=== PATIENT | male | born 1970 | race Caucasian/White ===

== ENCOUNTER 2020-02-16 21:27 | Observation (INO) | payer OTHER ==
[2020-02-16] MEDS ORDERED: Sodium Chloride 0.9% 1,000 ML IV ONE (22:07)
[2020-02-16] MEDS ORDERED: Ondansetron 4 MG/2 ML SDV IVPUSH ONE (22:07)
--- NOTE | 2020-02-16 22:15 | EDM.PDOC ---
<Rachael Mera Gertrude - Last Filed: 02/16/20 22:10> ED HPI GENERAL MEDICAL PROBLEM - General Stated Complaint: ABDOMINAL PAIN Time Seen by Provider: 02/16/20 21:33 Source of Information: Reports: Patient History Limitations: Reports: No Limitations - History of Present Illness INITIAL COMMENTS - FREE TEXT/NARRATIVE: Presents reporting right upper quadrant pain. Patient states that this past 02/10/19 he noticed some right upper quadrant pain, feeling poorly. He stayed off work for 2 days but returned to work on Saturday and Saturday and was feeling well. Then today his pain returned and was worse. Is accompanied by nausea he did vomit once. He has been drinking oral fluids. He thinks the pain is worse after eating. He had a bowel movement is brown and formed yesterday. He has also been feverish with a temperature of 102 at home. He is otherwise healthy without chronic medical problems. He has recently voluntarily lost 50 pounds. Right Upper Abdomen Pain Score (Numeric/FACES): 8 - Related Data Allergies Allergy/AdvReac Type Severity Reaction Status Date / Time No Known Allergies Allergy Verified 02/16/20 22:09 Home Meds: Home Meds . [No Known Home Meds] 02/16/20 [History] ED ROS GENERAL - Review of Systems Review Of Systems: Comprehensive ROS is negative, except as noted in HPI. ED EXAM, GI/ABD - Physical Exam Exam: See Below Exam Limited By: No Limitations General Appearance: Alert, No Apparent Distress Ears: Normal External Exam Nose: Normal Inspection Throat/Mouth: Normal Inspection Head: Atraumatic, Normocephalic Neck: Normal Inspection Respiratory/Chest: No Respiratory Distress, Lungs Clear, Normal Breath Sounds Cardiovascular: Normal Peripheral Pulses, Regular Rate, Rhythm GI/Abdominal Exam: Normal Bowel Sounds, Soft, No Distention, Other (Exquisitly tender right upper quadrant) Extremities: Normal Inspection, Normal Range of Motion Neurological: Alert, Oriented, Normal Cognition Psychiatric: Normal Affect, Normal Mood Skin Exam: Warm, Dry, Intact, Normal Color Lymphatic: No Adenopathy Departure - Departure Disposition: Admitted As Inpatient 67 Clinical Impression: Cholecystitis - Discharge Information Referrals: Keith Martino MD [Primary Care Provider] - <Donaldo Poole - Last Filed: 02/17/20 00:43> Course - Vital Signs Last Recorded V/S: Last Vital Signs Temp 98.4 F 02/16/20 22:09 Pulse 70 02/17/20 00:02 Resp 15 02/17/20 00:02 BP 121/73 02/17/20 00:02 Pulse Ox 96 02/17/20 00:02 - Orders/Labs/Meds Orders: Active Orders 24 hr Category Date Time Status Piperacillin/Tazobactam [Piperacil-Tazobact] 3.375 gm Med 02/17/20 00:31 Active Sodium Chloride 0.9% [Normal Saline] 50 ml IV ONETIME Medication Orders Piperacillin Sod/Tazobactam (Sod 3.375 gm/ Sodium Chloride) 50 mls @ 100 mls/hr IV ONETIME ONE Stop: 02/17/20 01:00 Labs: Laboratory Tests 02/16/20 02/16/20 02/16/20 Range/Units 22:30 22:30 23:55 WBC 16.14 H (4.0-11.0) K/uL RBC 5.04 (4.50-5.90) M/uL Hgb 13.9 (13.0-17.0) g/dL Hct 43.3 (38.0-50.0) % MCV 85.9 (80.0-98.0) fL MCH 27.6 (27.0-32.0) pg MCHC 32.1 (31.0-37.0) g/dL RDW Std Deviation 44.6 (28.0-62.0) fl RDW Coeff of Tao 14 (11.0-15.0) % Plt Count 270 (150-400) K/uL MPV 11.70 (7.40-12.00) fL Neut % (Auto) 82.4 H (48.0-80.0) % Lymph % (Auto) 9.1 L (16.0-40.0) % [place] % (Auto) 7.4 (0.0-15.0) % Eos % (Auto) 1.0 (0.0-7.0) % Baso % (Auto) 0.1 (0.0-1.5) % Neut # (Auto) 13.3 H (1.4-5.7) K/uL Lymph # (Auto) 1.5 (0.6-2.4) K/uL [place] # (Auto) 1.2 H (0.0-0.8) K/uL Eos # (Auto) 0.2 (0.0-0.7) K/uL Baso # (Auto) 0.0 (0.0-0.1) K/uL Nucleated RBC % 0.0 /100WBC Nucleated RBCs # 0 K/uL Sodium 138 (136-148) mmol/L Potassium 4.0 (3.5-5.1) mmol/L Chloride 104 (98-107) mmol/L Carbon Dioxide 23.4 (21.0-32.0) mmol/L BUN 19 H (7.0-18.0) mg/dL Creatinine 1.0 (0.8-1.3) mg/dL Est Cr Clr Drug Dosing 99.16 mL/min Estimated GFR (MDRD) > 60.0 ml/min Glucose 135 H (74-106) mg/dL Calcium 8.9 (8.5-10.1) mg/dL Total Bilirubin 0.2 (0.2-1.0) mg/dL AST 14 L (15-37) IU/L ALT 28 (14-63) IU/L Alkaline Phosphatase 85 (46-116) U/L Total Protein 7.5 (6.4-8.2) g/dL Albumin 3.7 (3.4-5.0) g/dL Globulin 3.8 (2.6-4.0) g/dL Albumin/Globulin Ratio 1.0 (0.9-1.6) Amylase 41 (25-115) U/L Lipase 80 (73-393) U/L Urine Color YELLOW Urine Appearance CLEAR Urine pH 5.5 (5.0-8.0) Ur Specific [place] 1.010 (1.001-1.035) Urine Protein NEGATIVE (NEGATIVE) mg/dL Urine Glucose (UA) NEGATIVE (NEGATIVE) mg/dL Urine Ketones NEGATIVE (NEGATIVE) mg/dL Urine Occult Blood NEGATIVE (NEGATIVE) Urine Nitrite NEGATIVE (NEGATIVE) Urine Bilirubin NEGATIVE (NEGATIVE) Urine Urobilinogen 0.2 (<2.0) EU/dL Ur Leukocyte Esterase NEGATIVE (NEGATIVE) Meds: Medications Generic Name Dose Route Start Last Admin Trade Name Freq PRN Reason Stop Dose Admin Piperacillin Sod/Tazobactam 50 mls @ 100 mls/hr 02/17/20 00:31 Sod 3.375 gm/ Sodium Chloride IV 02/17/20 01:00 ONETIME ONE Discontinued Medications Generic Name Dose Route Start Last Admin Trade Name Fili PRLowell Reason Stop Dose Admin Fentanyl 50 mcg 02/16/20 22:07 02/16/20 22:56 Fentanyl IVPUSH 02/16/20 22:08 Not Given ONETIME ONE Sodium Chloride 1,000 mls @ 999 mls/hr 02/16/20 22:07 02/16/20 22:52 Normal Saline IV 02/16/20 23:07 999 mls/hr .Bolus ONE Administration Iopamidol 100 ml 02/16/20 23:35 02/16/20 23:36 Isovue-370 (76%) IVPUSH 02/16/20 23:36 100 ml ONETIME ONE Administration Ketorolac Tromethamine 15 mg 02/16/20 22:57 02/16/20 23:02 Toradol IVPUSH 02/16/20 22:58 15 mg ONETIME ONE Administration Ondansetron HCl 4 mg 02/16/20 22:07 02/16/20 22:53 Zofran IVPUSH 02/16/20 22:08 4 mg ONETIME ONE Administration - Re-Assessments/Exams Free Text/Narrative Re-Assessment/Exam: 02/17/20 00:42 Dr. Santiago agrees to admit; Tiesha ordered Departure - Departure Time of Disposition: 00:42 Condition: Good Sepsis Event Note (ED) - Focused Exam Vital Signs: Vital Signs Temp Pulse Resp BP Pulse Ox 02/17/20 00:02 70 15 121/73 96 02/16/20 22:09 98.4 F 78 22 H 140/84 97 - My Orders Last 24 Hours: My Active Orders 02/17/20 00:31 Piperacillin/Tazobactam [Piperacil-Tazobact] 3.375 gm Sodium Chloride 0.9% [Normal Saline] 50 ml IV ONETIME - Assessment/Plan Last 24 Hours: My Active Orders 02/17/20 00:31 Piperacillin/Tazobactam [Piperacil-Tazobact] 3.375 gm Sodium Chloride 0.9% [Normal Saline] 50 ml IV ONETIME
[2020-02-16] MEDS: fentaNYL 50 MCG/ML SDV IVPUSH ONE ×2 (22:55→22:56)
[2020-02-16] MEDS ORDERED: Ketorolac 30 MG/ML SDV IVPUSH ONE (22:57)
[2020-02-16 23:15] LABS: BLOOD UREA NITROGEN,BUN 19 mg/dL (7.0-18.0); CARBON DIOXIDE,CO2 23.4 mmol/L (21.0-32.0); CHLORIDE,CL 104 mmol/L (98-107); GLUCOSE RANDOM 135 mg/dL (74-106); LIPASE 80 U/L (73-393); SODIUM,NA 138 mmol/L (136-148)
[2020-02-16] MEDS ORDERED: Iopamidol 755 Mg/ML 100 ML Bottle IVPUSH ONE (23:35)
--- NOTE | 2020-02-17 00:18 | CT ---
INDICATION: Right upper quadrant pain TECHNIQUE: CT Abdomen and pelvis with i.v. contrast. Coronal and sagittal reformats were obtained. CONTRAST: 100 mL Isovue 370 COMPARISON: None FINDINGS: Lower chest: Unremarkable. Liver: There is an 8 mm cyst present in the dome of the liver. Spleen: Unremarkable. Pancreas: Unremarkable. Gallbladder: Moderate gallbladder wall thickening is present with mild infiltration of the surrounding fat seen. Kidney: Unremarkable. No kidney or ureteral stones or obstruction seen. Adrenal: Unremarkable. Bowel: Unremarkable. The appendix is normal in appearance and size. Vascular: Unremarkable. Lymph: Unremarkable. Peritoneum: Unremarkable. No pneumoperitoneum is seen. No significant ascites is noted. Pelvis: Unremarkable. Soft tissue: Unremarkable. Bone: Bilateral chronic pars defects of L5 noted with grade 1 anterolisthesis of L5-S1 noted. IMPRESSION: 1. Moderate gallbladder wall thickening is present with mild infiltration of the surrounding fat seen. Findings are consistent with acute cholecystitis. Dictated by Musa Kim MD @ 02/17/2020 12:16:23 AM Please note that all CT scans at this facility use dose modulation, iterative reconstruction, and/or weight-based dosing when appropriate to reduce radiation dose to as low as reasonably achievable. Dictated by: Musa Kim MD @ 02/17/2020 00:16:29 (Electronically Signed)
[2020-02-17] MEDS ORDERED: Piperacillin/Tazobactam 3.375 GM in Sodium Chloride 0.9% 50 ML IV ONE (00:31)
[2020-02-17] MEDS ORDERED: Lactated Ringers 1,000 ML IV SCH (00:45)
[2020-02-17] MEDS ORDERED: Ondansetron 4 MG/2 ML SDV IVPUSH PRN (01:02)
[2020-02-17] MEDS ORDERED: Scopolamine 1.5 MG Transdermal Patch TRDERM PRN (01:04)
[2020-02-17] MEDS ORDERED: HYDROmorphone 1 MG/ML Syringe IVPUSH PRN (01:05)
[2020-02-17] MEDS: Lactated Ringers 1,000 ML IV SCH ×3 (03:05→23:00)
[2020-02-17] MEDS ORDERED: Piperacillin/Tazobactam 3.375 GM in Sodium Chloride 0.9% 50 ML IV SCH ×2 (03:15→06:00)
[2020-02-17 08:28] LABS: BLOOD UREA NITROGEN,BUN 14 mg/dL (7.0-18.0); CARBON DIOXIDE,CO2 26.2 mmol/L (21.0-32.0); CHLORIDE,CL 107 mmol/L (98-107); GLUCOSE RANDOM 106 mg/dL (74-106); POTASSIUM,K 4.3 mmol/L (3.5-5.1); SODIUM,NA 142 mmol/L (136-148)
--- NOTE | 2020-02-17 08:48 | PCM.HP.2 ---
H&P History of Present Illness - General Date of Service: 02/17/20 Admit Problem/Dx: Admission Diagnosis/Problem Admission Diagnosis/Problem Cholecystitis Source of Information: Patient History Limitations: Reports: No Limitations - History of Present Illness Initial Comments - Free Text/Narative: Patient is a 49-year-old male who presents with right upper quadrant pain. He first noticed symptoms last . He was at work when he developed sharp right upper quadrant pain. After 24 hours the pain subsided. Over the weekend he did well then last evening he developed sharp right upper quadrant pain again which continued to get worse and not go away. He has never had pain like this in the past. He felt chills and had a transient low-grade fever. He presented to the emergency room. His vital signs are stable on admission. His white blood cell count was elevated at 17,000 with a left shift. His LFTs were normal. His hemoglobin A1c was slightly elevated at 6.4. He underwent a CT scan that showed distended and slightly edematous gallbladder consistent with acute ch olecystitis. He was given pain medication kept nothing by mouth and given IV fluids. This morning he was feeling much better. His white blood count had gone down to 12,000 in the remainder of his labs are normal. An ultrasound was performed which showed multiple small gallstones in a distended and thickened gallbladder consistent with acute cholecystitis. Right Upper Abdomen Pain Score (Numeric/FACES): 4 - Related Data Allergies/Adverse Reactions: Allergies Allergy/AdvReac Type Severity Reaction Status Date / Time No Known Allergies Allergy Verified 02/17/20 03:23 Home Medications: Home Meds . [No Known Home Meds] 02/16/20 [History] Past Medical History - Past Health History Medical/Surgical History: Denies Medical/Surgical History HEENT History: Reports: None Cardiovascular History: Reports: None Respiratory History: Reports: Sleep Apnea Gastrointestinal History: Reports: None Genitourinary History: Reports: None Musculoskeletal History: Reports: None Neurological History: Reports: None Psychiatric History: Reports: None Endocrine/Metabolic History: Reports: None Hematologic History: Reports: None Immunologic History: Reports: None Oncologic (Cancer) History: Reports: None Dermatologic History: Reports: None - Infectious Disease History Infectious Disease History: Reports: None - Past Surgical History Head Surgeries/Procedures: Reports: None Male Surgical History: Reports: None Social & Family History - Tobacco Use Smoking Status *Q: Never Smoker Second Hand Smoke Exposure: No - Caffeine Use Caffeine Use: Reports: Coffee - Alcohol Use Days Per Week of Alcohol Use: 3 Number of Drinks Per Day: 1 Total Drinks Per Week: 3 Date of Last Drink: 02/12/20 - Recreational Drug Use Recreational Drug Use: No H&P Review of Systems - Review of Systems: Review Of Systems: Comprehensive ROS is negative, except as noted in HPI. Exam - Exam Exam: See Below - Vital Signs Vital Signs: Last Vital Signs Temp 37.0 C 02/17/20 08:00 Pulse 80 02/17/20 08:00 Resp 18 02/17/20 08:00 BP 120/70 02/17/20 08:00 Pulse Ox 94 L 02/17/20 08:00 Weight: 119.522 kg - Exam General: Alert, Oriented HEENT: Conjunctiva Clear, Mucosa Moist & [place], Posterior Pharynx Clear Neck: Supple, Trachea Midline Lungs: Clear to Auscultation, Normal Respiratory Effort Cardiovascular: Regular Rate, Regular Rhythm GI/Abdominal Exam: Soft, Non-Tender, No Distention, No Mass Back Exam: Normal Inspection Extremities: Normal Inspection - Patient Data Lab Results Last 24 hrs: Laboratory Results - last 24 hr 02/16/20 02/16/20 02/16/20 Range/Units 22:30 22:30 23:55 WBC 16.14 H (4.0-11.0) K/uL RBC 5.04 (4.50-5.90) M/uL Hgb 13.9 (13.0-17.0) g/dL Hct 43.3 (38.0-50.0) % MCV 85.9 (80.0-98.0) fL MCH 27.6 (27.0-32.0) pg MCHC 32.1 (31.0-37.0) g/dL RDW Std Deviation 44.6 (28.0-62.0) fl RDW Coeff of Tao 14 (11.0-15.0) % Plt Count 270 (150-400) K/uL MPV 11.70 (7.40-12.00) fL Neut % (Auto) 82.4 H (48.0-80.0) % Lymph % (Auto) 9.1 L (16.0-40.0) % [place] % (Auto) 7.4 (0.0-15.0) % Eos % (Auto) 1.0 (0.0-7.0) % Baso % (Auto) 0.1 (0.0-1.5) % Neut # (Auto) 13.3 H (1.4-5.7) K/uL Lymph # (Auto) 1.5 (0.6-2.4) K/uL [place] # (Auto) 1.2 H (0.0-0.8) K/uL Eos # (Auto) 0.2 (0.0-0.7) K/uL Baso # (Auto) 0.0 (0.0-0.1) K/uL Nucleated RBC % 0.0 /100WBC Nucleated RBCs # 0 K/uL Sodium 138 (136-148) mmol/L Potassium 4.0 (3.5-5.1) mmol/L Chloride 104 (98-107) mmol/L Carbon Dioxide 23.4 (21.0-32.0) mmol/L BUN 19 H (7.0-18.0) mg/dL Creatinine 1.0 (0.8-1.3) mg/dL Est Cr Clr Drug Dosing 99.16 mL/min Estimated GFR (MDRD) > 60.0 ml/min Glucose 135 H (74-106) mg/dL Calcium 8.9 (8.5-10.1) mg/dL Total Bilirubin 0.2 (0.2-1.0) mg/dL AST 14 L (15-37) IU/L ALT 28 (14-63) IU/L Alkaline Phosphatase 85 (46-116) U/L Total Protein 7.5 (6.4-8.2) g/dL Albumin 3.7 (3.4-5.0) g/dL Globulin 3.8 (2.6-4.0) g/dL Albumin/Globulin Ratio 1.0 (0.9-1.6) Amylase 41 (25-115) U/L Lipase 80 (73-393) U/L Urine Color YELLOW Urine Appearance CLEAR Urine pH 5.5 (5.0-8.0) Ur Specific [place] 1.010 (1.001-1.035) Urine Protein NEGATIVE (NEGATIVE) mg/dL Urine Glucose (UA) NEGATIVE (NEGATIVE) mg/dL Urine Ketones NEGATIVE (NEGATIVE) mg/dL Urine Occult Blood NEGATIVE (NEGATIVE) Urine Nitrite NEGATIVE (NEGATIVE) Urine Bilirubin NEGATIVE (NEGATIVE) Urine Urobilinogen 0.2 (<2.0) EU/dL Ur Leukocyte Esterase NEGATIVE (NEGATIVE) SARS-CoV-2 RNA (NIKA) (NEGATIVE) 02/17/20 02/17/20 02/17/20 Range/Units 01:05 07:24 07:24 WBC 12.83 H (4.0-11.0) K/uL RBC 4.57 (4.50-5.90) M/uL Hgb 12.6 L (13.0-17.0) g/dL Hct 39.9 (38.0-50.0) % MCV 87.3 (80.0-98.0) fL MCH 27.6 (27.0-32.0) pg MCHC 31.6 (31.0-37.0) g/dL RDW Std Deviation 46.5 (28.0-62.0) fl RDW Coeff of Tao 15 (11.0-15.0) % Plt Count 238 (150-400) K/uL MPV 12.40 H (7.40-12.00) fL Neut % (Auto) 68.9 (48.0-80.0) % Lymph % (Auto) 17.5 (16.0-40.0) % [place] % (Auto) 11.7 (0.0-15.0) % Eos % (Auto) 1.7 (0.0-7.0) % Baso % (Auto) 0.2 (0.0-1.5) % Neut # (Auto) 8.9 H (1.4-5.7) K/uL Lymph # (Auto) 2.2 (0.6-2.4) K/uL [place] # (Auto) 1.5 H (0.0-0.8) K/uL Eos # (Auto) 0.2 (0.0-0.7) K/uL Baso # (Auto) 0.0 (0.0-0.1) K/uL Nucleated RBC % 0.0 /100WBC Nucleated RBCs # 0 K/uL Sodium 142 (136-148) mmol/L Potassium 4.3 (3.5-5.1) mmol/L Chloride 107 (98-107) mmol/L Carbon Dioxide 26.2 (21.0-32.0) mmol/L BUN 14 (7.0-18.0) mg/dL Creatinine 0.9 (0.8-1.3) mg/dL Est Cr Clr Drug Dosing 110.17 mL/min Estimated GFR (MDRD) > 60.0 ml/min Glucose 106 (74-106) mg/dL Calcium 8.1 L (8.5-10.1) mg/dL Total Bilirubin 0.2 (0.2-1.0) mg/dL AST 9 L (15-37) IU/L ALT 20 (14-63) IU/L Alkaline Phosphatase 69 (46-116) U/L Total Protein 6.1 L (6.4-8.2) g/dL Albumin 2.9 L (3.4-5.0) g/dL Globulin 3.2 (2.6-4.0) g/dL Albumin/Globulin Ratio 0.9 (0.9-1.6) Amylase (25-115) U/L Lipase (73-393) U/L Urine Color Urine Appearance Urine pH (5.0-8.0) Ur Specific [place] (1.001-1.035) Urine Protein (NEGATIVE) mg/dL Urine Glucose (UA) (NEGATIVE) mg/dL Urine Ketones (NEGATIVE) mg/dL Urine Occult Blood (NEGATIVE) Urine Nitrite (NEGATIVE) Urine Bilirubin (NEGATIVE) Urine Urobilinogen (<2.0) EU/dL Ur Leukocyte Esterase (NEGATIVE) SARS-CoV-2 RNA (NIKA) NEGATIVE (NEGATIVE) Result Diagrams: 02/17/20 07:24 02/17/20 07:24 Sepsis Event Note - Evaluation Sepsis Screening Result: No Definite Risk - Focused Exam Vital Signs: Vital Signs Temp Pulse Resp BP Pulse Ox 02/17/20 08:00 37.0 C 80 18 120/70 94 L 02/17/20 03:25 36.6 C 85 16 123/69 96 02/17/20 02:25 84 16 111/56 L 95 02/17/20 00:02 70 15 121/73 96 02/16/20 22:09 36.9 C 78 22 H 140/84 97 - Problem List (1) Cholecystitis SNOMED Code(s): 50615531 ICD Code: K81.9 - CHOLECYSTITIS, UNSPECIFIED Status: Acute Current Visit: Yes Problem List Initiated/Reviewed/Updated: Yes Orders Last 24hrs: Active Orders 24 hr Category Date Time Status Patient Status [ADT] Routine ADT 02/17/20 00:43 Active Antiembolic Devices [RC] PER UNIT ROUTINE Care 02/17/20 01:03 Active Incentive Spirometry [RT Incentive Spirometry] [RC] Care 02/17/20 01:03 Active ASDIRECTED NPO [Nothing Per Oral Diet] [DIET] Diet 02/17/20 Breakfast Active Abdomen Ltd [US] Stat Exams 02/17/20 07:07 Ordered GLYCOSYLATED HEMOGLOBIN,HGBA1C [CHEM] Routine Lab 02/17/20 08:33 Ordered HYDROmorphone [Dilaudid] Med 02/17/20 01:05 Active 0.5 mg IVPUSH Q1H PRN Lactated Ringers [Ringers, Lactated] 1,000 ml Med 02/17/20 00:45 Active IV ASDIRECTED Lactated Ringers [Ringers, Lactated] 1,000 ml Med 02/17/20 01:00 Active IV ASDIRECTED Ondansetron [Zofran] Med 02/17/20 01:02 Active 4 mg IVPUSH Q6H PRN Piperacillin/Tazobactam [Piperacil-Tazobact] 3.375 gm Med 02/17/20 09:00 Active Sodium Chloride 0.9% [Normal Saline] 50 ml IV Q6H Remove Patch Med 02/17/20 21:00 Active 1 ea TRDERM DAILY@2100 Scopolamine [Transderm-Scop] Med 02/17/20 01:04 Active 1.5 mg TRDERM Q72H PRN Sequential Compression Device [OM.PC] Routine Oth 02/17/20 01:03 Ordered Medication Orders Hydromorphone HCl (Dilaudid) 0.5 mg IVPUSH Q1H PRN PRN Reason: Pain Lactated Ringer's (Ringers, Lactated) 1,000 mls @ 150 mls/hr IV ASDIRECTED JANNIE Lactated Ringer's (Ringers, Lactated) 1,000 mls @ 125 mls/hr IV ASDIRECTED JANNIE Last Admin: 02/17/20 03:05 Dose: 125 mls/hr Documented by: LESLIE Piperacillin Sod/Tazobactam (Sod 3.375 gm/ Sodium Chloride) 50 mls @ 100 mls/hr IV Q6H [facility] Miscellaneous Information (Remove Patch) 1 ea TRDERM DAILY@2100 JANNIE Ondansetron HCl (Zofran) 4 mg IVPUSH Q6H PRN PRN Reason: Nausea/Vomiting Scopolamine (Transderm-Scop) 1.5 mg TRDERM Q72H PRN PRN Reason: Nausea Assessment/Plan Comment:: The patient and I discussed the pathophysiology of biliary disease. For symptomatic cholelithiasis, treatment is removal of the gallbladder. The patient and I discussed the laparoscopic and open approach to cholecystectomy. Should I be unable to remove the gallbladder safely via the laparoscopic approach I will convert to open. We discussed the expected perioperative course as well as the risks including bleeding infection or damage to surrounding structures. Patient verbalized understanding and wishes to proceed.
[2020-02-17] MEDS: Piperacillin/Tazobactam 3.375 GM in Sodium Chloride 0.9% 50 ML IV SCH ×3 (09:04→22:05)
--- NOTE | 2020-02-17 09:08 | US ---
INDICATION: Abdominal pain COMPARISON: CT abdomen pelvis dated 02/16/2020 TECHNIQUE: 2D garcia scale imaging and color Doppler analysis was performed of the right upper quadrant. FINDINGS: The patient`s liver is of normal size and has uniform echogenicity. There is no evidence of ascites. There is a normal appearance of the hepatic IVC and proximal abdominal aorta. The pancreas appears normal. The gallbladder contains a mixture of tiny stones and sludge and there is abnormal edema within the gallbladder wall. The common bile duct is of normal size and measures 2 mm in diameter at the level of the gregor hepatis. The right kidney measures 12.8 cm in length. There is no evidence of a stone or hydronephrosis within the right kidney. IMPRESSION: Acute cholecystitis changes. Dictated by Chris Dutta MD @ Feb 17 2020 8:53AM Signed by Dr. Chris Dutta @ Feb 17 2020 9:05AM
[2020-02-17 09:21] LABS: HEMOGLOBIN A1C 6.4 % (4.5-6.2)
[2020-02-18] MEDS: Piperacillin/Tazobactam 3.375 GM in Sodium Chloride 0.9% 50 ML IV SCH ×5 (03:23→20:58)
[2020-02-18 06:52] LABS: BLOOD UREA NITROGEN,BUN 7 mg/dL (7.0-18.0); CARBON DIOXIDE,CO2 27.4 mmol/L (21.0-32.0); CHLORIDE,CL 108 mmol/L (98-107); GLUCOSE RANDOM 99 mg/dL (74-106); POTASSIUM,K 3.8 mmol/L (3.5-5.1); SODIUM,NA 143 mmol/L (136-148)
--- NOTE | 2020-02-18 08:43 | PCM.PREANE ---
Preanesthetic Assessment - Anesthesia/Transfusion/Family Hx Anesthesia History: Prior Anesthesia Without Reaction Family History of Anesthesia Reaction: No Transfusion History: Unknown Intubation History: Unknown - Review of Systems General: No Symptoms Pulmonary: No Symptoms Cardiovascular: No Symptoms Gastrointestinal: Abdominal Pain Neurological: No Symptoms Other: Reports: None - Physical Assessment Vital Signs: Last Vital Signs Temp 36.9 C 02/18/20 05:00 Pulse 73 02/18/20 05:00 Resp 16 02/18/20 05:00 BP 95/59 L 02/18/20 05:00 Pulse Ox 94 L 02/18/20 05:00 Height: 6 ft Weight: 119.522 kg ASA Class: 2 Mental Status: Alert & Oriented x3 Airway Class: Mallampati = 2 Dentition: Reports: Normal Dentition, [place](s) (crown x1 upper front) Thyro-Mental Finger Breadths: 3 Mouth Opening Finger Breadths: 3 ROM/Head Extension: Full Lungs: Clear to Auscultation, Normal Respiratory Effort Cardiovascular: Regular Rate, Regular Rhythm - Lab Values: Laboratory Last Values WBC 8.83 K/uL (4.0-11.0) 02/18/20 05:41 RBC 4.41 M/uL (4.50-5.90) L 02/18/20 05:41 Hgb 12.0 g/dL (13.0-17.0) L 02/18/20 05:41 Hct 38.7 % (38.0-50.0) 02/18/20 05:41 MCV 87.8 fL (80.0-98.0) 02/18/20 05:41 MCH 27.2 pg (27.0-32.0) 02/18/20 05:41 MCHC 31.0 g/dL (31.0-37.0) 02/18/20 05:41 RDW Std Deviation 47.4 fl (28.0-62.0) 02/18/20 05:41 RDW Coeff of Tao 15 % (11.0-15.0) 02/18/20 05:41 Plt Count 226 K/uL (150-400) 02/18/20 05:41 MPV 12.10 fL (7.40-12.00) H 02/18/20 05:41 Neut % (Auto) 67.5 % (48.0-80.0) 02/18/20 05:41 Lymph % (Auto) 18.1 % (16.0-40.0) 02/18/20 05:41 [place] % (Auto) 11.4 % (0.0-15.0) 02/18/20 05:41 Eos % (Auto) 2.9 % (0.0-7.0) 02/18/20 05:41 Baso % (Auto) 0.1 % (0.0-1.5) 02/18/20 05:41 Neut # (Auto) 6.0 K/uL (1.4-5.7) H 02/18/20 05:41 Lymph # (Auto) 1.6 K/uL (0.6-2.4) 02/18/20 05:41 [place] # (Auto) 1.0 K/uL (0.0-0.8) H 02/18/20 05:41 Eos # (Auto) 0.3 K/uL (0.0-0.7) 02/18/20 05:41 Baso # (Auto) 0.0 K/uL (0.0-0.1) 02/18/20 05:41 Nucleated RBC % 0.0 /100WBC 02/18/20 05:41 Nucleated RBCs # 0 K/uL 02/18/20 05:41 Sodium 143 mmol/L (136-148) 02/18/20 05:41 Potassium 3.8 mmol/L (3.5-5.1) 02/18/20 05:41 Chloride 108 mmol/L (98-107) H 02/18/20 05:41 Carbon Dioxide 27.4 mmol/L (21.0-32.0) 02/18/20 05:41 BUN 7 mg/dL (7.0-18.0) 02/18/20 05:41 Creatinine 0.9 mg/dL (0.8-1.3) 02/18/20 05:41 Est Cr Clr Drug Dosing 110.17 mL/min 02/18/20 05:41 Estimated GFR (MDRD) > 60.0 ml/min 02/18/20 05:41 Glucose 99 mg/dL (74-106) 02/18/20 05:41 Hemoglobin A1c 6.4 % (4.5-6.2) H 02/17/20 07:24 Calcium 8.1 mg/dL (8.5-10.1) L 02/18/20 05:41 Total Bilirubin 0.5 mg/dL (0.2-1.0) 02/18/20 05:41 AST 12 IU/L (15-37) L 02/18/20 05:41 ALT 21 IU/L (14-63) 02/18/20 05:41 Alkaline Phosphatase 64 U/L (46-116) 02/18/20 05:41 Total Protein 6.0 g/dL (6.4-8.2) L 02/18/20 05:41 Albumin 2.8 g/dL (3.4-5.0) L 02/18/20 05:41 Globulin 3.2 g/dL (2.6-4.0) 02/18/20 05:41 Albumin/Globulin Ratio 0.9 (0.9-1.6) 02/18/20 05:41 Amylase 41 U/L (25-115) 02/16/20 22:30 Lipase 80 U/L (73-393) 02/16/20 22:30 Urine Color YELLOW 02/16/20 23:55 Urine Appearance CLEAR 02/16/20 23:55 Urine pH 5.5 (5.0-8.0) 02/16/20 23:55 Ur Specific [place] 1.010 (1.001-1.035) 02/16/20 23:55 Urine Protein NEGATIVE mg/dL (NEGATIVE) 02/16/20 23:55 Urine Glucose (UA) NEGATIVE mg/dL (NEGATIVE) 02/16/20 23:55 Urine Ketones NEGATIVE mg/dL (NEGATIVE) 02/16/20 23:55 Urine Occult Blood NEGATIVE (NEGATIVE) 02/16/20 23:55 Urine Nitrite NEGATIVE (NEGATIVE) 02/16/20 23:55 Urine Bilirubin NEGATIVE (NEGATIVE) 02/16/20 23:55 Urine Urobilinogen 0.2 EU/dL (<2.0) 02/16/20 23:55 Ur Leukocyte Esterase NEGATIVE (NEGATIVE) 02/16/20 23:55 SARS-CoV-2 RNA (NIKA) NEGATIVE (NEGATIVE) 02/17/20 01:05 - Allergies Allergies/Adverse Reactions: Allergies Allergy/AdvReac Type Severity Reaction Status Date / Time No Known Allergies Allergy Verified 02/17/20 03:23 - Blood Blood Available: No - Anesthesia Plan Pre-Op Medication Ordered: None - Acknowledgements Anesthesia Type Planned: General Anesthesia Pt an Appropriate Candidate for the Planned Anesthesia: Yes Alternatives and Risks of Anesthesia Discussed w Pt/Guardian: Yes Pt/Guardian Understands and Agrees with Anesthesia Plan: Yes PreAnesthesia Questionnaire - Past Health History Medical/Surgical History: Denies Medical/Surgical History HEENT History: Reports: None Cardiovascular History: Reports: None Respiratory History: Reports: Sleep Apnea (uses CPAP) Gastrointestinal History: Reports: Cholelithiasis Genitourinary History: Reports: None Musculoskeletal History: Reports: None Neurological History: Reports: None Psychiatric History: Reports: None Endocrine/Metabolic History: Reports: Obesity/BMI 30+ (BMI 35.7) Hematologic History: Reports: None Immunologic History: Reports: None Oncologic (Cancer) History: Reports: None Dermatologic History: Reports: None - Infectious Disease History Infectious Disease History: Reports: None - Past Surgical History Head Surgeries/Procedures: Reports: None HEENT Surgical History: Reports: Adenoidectomy, Oral Surgery, Tonsillectomy Male Surgical History: Reports: None Musculoskeletal Surgical History: Reports: Other (See Below) (finger surgery (tendon repair ?)) - SUBSTANCE USE Smoking Status *Q: Never Smoker Tobacco Use Within Last Twelve Months: No Second Hand Smoke Exposure: No Days Per Week of Alcohol Use: 3 Number of Drinks Per Day: 1 Total Drinks Per Week: 3 Date of Last Drink: 02/12/20 Recreational Drug Use History: No - HOME MEDS Home Medications: Home Meds . [No Known Home Meds] 02/16/20 [History] - CURRENT (IN HOUSE) MEDS Current Meds: Current Medications Hydromorphone HCl (Dilaudid) 0.5 mg IVPUSH Q1H PRN PRN Reason: Pain Lactated Ringer's (Ringers, Lactated) 1,000 mls @ 150 mls/hr IV ASDIRECTED JANNIE Lactated Ringer's (Ringers, Lactated) 1,000 mls @ 125 mls/hr IV ASDIRECTED JANNIE Last Admin: 02/17/20 23:00 Dose: 125 mls/hr Documented by: Piperacillin Sod/Tazobactam (Sod 3.375 gm/ Sodium Chloride) 50 mls @ 100 mls/hr IV Q6H JANNIE Last Admin: 02/18/20 03:23 Dose: 100 mls/hr Documented by: Miscellaneous Information (Remove Patch) 1 ea TRDERM DAILY@2100 [facility] Last Admin: 02/18/20 03:30 Dose: Not Given Documented by: Ondansetron HCl (Zofran) 4 mg IVPUSH Q6H PRN PRN Reason: Nausea/Vomiting Scopolamine (Transderm-Scop) 1.5 mg TRDERM Q72H PRN PRN Reason: Nausea Discontinued Medications Fentanyl (Fentanyl) 50 mcg IVPUSH ONETIME ONE Stop: 02/16/20 22:08 Last Admin: 02/16/20 22:56 Dose: Not Given Documented by: Sodium Chloride (Normal Saline) 1,000 mls @ 999 mls/hr IV .Bolus ONE Stop: 02/16/20 23:07 Last Admin: 02/16/20 22:52 Dose: 999 mls/hr Documented by: Piperacillin Sod/Tazobactam (Sod 3.375 gm/ Sodium Chloride) 50 mls @ 100 mls/hr IV ONETIME ONE Stop: 02/17/20 01:00 Last Admin: 02/17/20 03:05 Dose: 100 mls/hr Documented by: Piperacillin Sod/Tazobactam (Sod 3.375 gm/ Sodium Chloride) 50 mls @ 100 mls/hr IV Q6H [facility] Piperacillin Sod/Tazobactam (Sod 3.375 gm/ Sodium Chloride) 50 mls @ 100 mls/hr IV Q6H [facility] Last Admin: 02/17/20 03:35 Dose: Not Given Documented by: Iopamidol (Isovue-370 (76%)) 100 ml IVPUSH ONETIME ONE Stop: 02/16/20 23:36 Last Admin: 02/16/20 23:36 Dose: 100 ml Documented by: Ketorolac Tromethamine (Toradol) 15 mg IVPUSH ONETIME ONE Stop: 02/16/20 22:58 Last Admin: 02/16/20 23:02 Dose: 15 mg Documented by: Ondansetron HCl (Zofran) 4 mg IVPUSH ONETIME ONE Stop: 02/16/20 22:08 Last Admin: 02/16/20 22:53 Dose: 4 mg Documented by:
[2020-02-18] MEDS ORDERED: Ketorolac 30 MG/ML SDV ONE ×2 (12:20→12:26)
[2020-02-18] MEDS ORDERED: Ondansetron 4 MG/2 ML SDV ONE (12:20)
[2020-02-18] MEDS ORDERED: Rocuronium Bromide 50 MG/5 ML Syringe ONE ×2 (12:20→14:14)
[2020-02-18] MEDS ORDERED: Lidocaine 2% 5 ML SDV ONE (12:20)
[2020-02-18] MEDS ORDERED: fentaNYL 250 MCG/5 ML SDV ONE (12:22)
[2020-02-18] MEDS ORDERED: HYDROmorphone 2 MG/ML Syringe ONE (12:22)
[2020-02-18] MEDS ORDERED: Midazolam 1 MG/ML 2 ML SDV ONE (12:22)
[2020-02-18] MEDS ORDERED: Propofol 200 MG/20 ML SDV ONE (12:25)
[2020-02-18] MEDS ORDERED: Bupivacaine 0.5% 30 ML SDV ONE (13:05)
[2020-02-18] MEDS ORDERED: Scopolamine 1.5 MG Transdermal Patch ONE (14:06)
[2020-02-18] MEDS ORDERED: Sugammadex Sodium 200 MG/2 ML VIAL ONE (14:28)
[2020-02-18] MEDS ORDERED: Glycopyrrolate 0.2 MG/ML SDV ONE (15:27)
--- NOTE | 2020-02-18 15:50 | PCM.SN.2 ---
- Free Text/Narrative Note: Patient did well overnight. No new symptoms. He is having no abdominal pain. Vitals stable overnight and this am. UOP adequate. Labs show his WBC returned to normal. His CMP is all within normal limits. Patient was resting comfortably in bed this am in no acute distress. Will proceed with surgery this afternoon.
--- NOTE | 2020-02-18 15:55 | PCM.OPNOTE ---
- General Post-Op/Procedure Note Date of Surgery/Procedure: 02/18/20 Operative Procedure(s): Laparoscopic cholecytectomy Findings: Grossly inflamed, edematous and thickened gallbladder that was intra-hepatic. Back wall of the gallbladder left in place. Pre Op Diagnosis: Acute cholecystitis Post-Op Diagnosis: same Anesthesia Technique: General ET Tube Primary Surgeon: Brunilda Santiago Fluid Replacement, Intraop: 1,000 Output, Urine Amount: 165 EBL in mLs: 25 Surgical Drain/Tube Type: Mik Drain Condition: Good Free Text/Narrative:: Intake & Output 02/18/20 02/18/20 02/18/20 06:59 14:59 22:59 Intake Total 2879 Output Total 1350 Balance 1529
[2020-02-18] MEDS ORDERED: Promethazine 25 MG/ML SDV IM PRN (15:56)
[2020-02-18] MEDS ORDERED: diphenhydrAMINE 50 MG/ML SDV IVPUSH PRN (15:56)
[2020-02-18] MEDS ORDERED: Acetaminophen/oxyCODONE 325-5 MG Tab PO PRN (15:56)
--- NOTE | 2020-02-18 16:25 | PCM.POSTAN ---
POST ANESTHESIA ASSESSMENT - MENTAL STATUS Mental Status: Alert, Oriented - VITAL SIGNS Vital Signs: Last Vital Signs Temp 36.5 C 02/18/20 15:55 Pulse 73 02/18/20 16:17 Resp 13 02/18/20 16:17 BP 113/74 02/18/20 16:17 Pulse Ox 96 02/18/20 16:17 - RESPIRATORY Respiratory Status: Respiratory Rate WNL, Airway Patent, O2 Saturation Stable - CARDIOVASCULAR CV Status: Pulse Rate WNL, Blood Pressure Stable - GASTROINTESTINAL GI Status: No Symptoms - PAIN Pain Score: 0 - POST OP HYDRATION Hydration Status: Adequate & Stable - OBSERVATIONS Free Text/Narrative:: The patient has no complaints, and tolerated the procedure well. There were no apparent anesthetic complications at this time. Discharge to floor per criteria.
[2020-02-18] MEDS: Lactated Ringers 1,000 ML IV SCH (17:04)
--- NOTE | 2020-02-18 20:22 | OR ---
SURGEON: BRUNILDA SMITH MD DATE OF PROCEDURE: 02/18/2020 PREOPERATIVE DIAGNOSIS: Acute cholecystitis. POSTOPERATIVE DIAGNOSIS: Acute cholecystitis. PROCEDURE PERFORMED: Laparoscopic cholecystectomy. PRIMARY SURGEON: Brunilda Smith MD TRAFFIC MANAGER: Dr. Danish Fischer ANESTHESIA: General endotracheal anesthesia. FLUIDS: 1000 mL crystalloid. ESTIMATED BLOOD LOSS: 25 mL. URINE OUTPUT: 165 mL. FINDINGS: Grossly inflamed, edematous, and thickened gallbladder that was intrahepatic. Back wall of the gallbladder was left in place. COMPLICATIONS: None. INDICATIONS: The patient is a 49-year-old male who presented 2 nights ago with severe right upper quadrant pain. CT scan showed a distended gallbladder. The patient was admitted to the floor and an ultrasound was performed the next morning. This showed cholelithiasis with evidence of acute cholecystitis. The patient was given IV fluids, bowel rest, and IV antibiotics. I explained the need for laparoscopic, possible open cholecystectomy. I explained the procedure, expected perioperative course, and the risks including bleeding, infection, or damage to surrounding structures. He verbalized understanding and wishes to proceed. PROCEDURE IN DETAIL: The patient was brought into the OR and placed on the OR table in supine position. A time-out was completed verifying the patient's name, age, date of , allergies, and procedure to be performed. General endotracheal anesthesia was induced. The left arm was tucked to the patient's side and a Thomas catheter placed. The abdomen was shaved, then prepped and draped in usual standard fashion. I anesthetized the supraumbilical midline with 0.5% Marcaine plain. An 11 blade was used to make an incision along this area. Using cautery, I dissected down to the level of subcutaneous fat. I then bluntly dissected down to the fascia. The fascia was elevated with Elana's and incised sharply with a curved Singleton scissors. The peritoneum was grasped with hemostats and incised sharply as well. Entry into the abdomen was palpated digitally. Stay sutures were placed on either side of the fascia using 0 Vicryl suture. A 12 mm Scot trocar was placed into the abdomen. The abdomen was insufflated and a 5 mm 30-degree scope was inserted. I inspected the area underneath my initial trocar placement. No damage to surrounding structures was noted. The patient then was placed into reverse Trendelenburg position and placed slightly to the left. 5 mm trocars were placed under direct visualization in the following locations; 1 in the epigastric area, 1 in the right flank, and one 2 fingerbreadths below the right subcostal margin in the midclavicular line. The dome of the gallbladder was grasped. It was thickened and inflamed. The body of the gallbladder was encased in inflamed omentum. This was gently swept down using suction. I was able to identify the infundibulum. Due to some gallbladder distention, I decided to aspirate the gallbladder to provide better mobility. An aspirating needle was passed through the epigastric trocar and inserted in the mid body of the gallbladder. I suctioned out 40 mL of green- appearing bile. I then began dissection along the infundibulum. The fat along this area was thickened and inflamed. I identified the node of [place] and continued my dissection around this structure. Eventually, I was able to identify both the cystic duct and artery. I cleared away a window between the cystic artery and the cystic plate. Once I was confident of my anatomy, a photograph was taken. I then doubly clipped and ligated both the cystic duct and artery. I then doubly clipped some inflamed fat along the proximal cystic plate thinking that this was a small vessel, and ended up being fatty tissue. Using hook cautery, I attempted to dissect the gallbladder free from the remaining cystic plate. The gallbladder was intrahepatic. About fdc up the cystic plate, I got into the gallbladder itself. I spilled bile and multiple small 1 to 2 mm stones into the abdomen. These were suctioned out. I then carried my dissection both laterally and medially; however, the immediate back wall of the gallbladder was so thickened and inflamed, I had difficulty creating a plane. The decision was made to leave at least half of the back wall and not attempt any further dissection. The remainder of the gallbladder was removed and placed in an Endo Catch bag. I then irrigated the abdomen with 2 L of normal saline and suctioned this out, making sure to get as many of the small stones as I possibly could. The cautery level was then increased and I cauterized the back wall of the gallbladder, which had been left in place. Two small pieces of Surgicel were placed along the proximal gallbladder fossa to provide hemostasis. A 19-Serbian Mik drain was brought in through the right flank port and placed along my operative field and along the right pericolic gutter along the edge of the liver. The 5 mm trocar on that side was then removed and I secured the drain tubing to the skin using a 2-0 silk suture. The operative field was inspected again and found to be hemostatic with no evidence of bile leak. During the case, photographs were taken of the gallbladder itself, the critical view, as well as of the back wall left in place and of my final inspection of the operative field. The 5 mm trocars were removed under direct visualization, the abdomen allowed to desufflate. The 12 mm Scot trocar along with the Endo Catch bag were then removed. I closed the fascia at the supraumbilical port site with interrupted 0 Vicryl sutures. The subcutaneous fat layer was closed with interrupted 3-0 Vicryl sutures. The skin was closed with a running 4-0 Monocryl stitch. This area was irrigated copiously with normal saline prior to closing it. The 5 mm trocar sites were then closed with interrupted 4-0 Monocryl sutures. Steri-Strips and sterile dressings were applied. The patient tolerated the procedure well and was transferred to the PACU in stable condition. All counts were complete and correct at the end of the case. EAMON / TEA /[id number]
[2020-02-19] MEDS: Lactated Ringers 1,000 ML IV SCH (02:33)
[2020-02-19] MEDS: Piperacillin/Tazobactam 3.375 GM in Sodium Chloride 0.9% 50 ML IV SCH (02:33)
[2020-02-19] MEDS ORDERED: Bisacodyl 5 MG Tab PO SCH (09:00)
--- NOTE | 2020-02-19 10:15 | PCM48HPAN ---
Post Anesthesia Note - EVALUATION WITHIN 48HRS OF ANESTHETIC Vital Signs in Normal Range: Yes Patient Participated in Evaluation: Yes Respiratory Function Stable: Yes Airway Patent: Yes Cardiovascular Function Stable: Yes Hydration Status Stable: Yes Pain Control Satisfactory: Yes Nausea and Vomiting Control Satisfactory: Yes Mental Status Recovered: Yes Vital Signs: Last Vital Signs Temp 36.9 C 02/19/20 07:08 Pulse 78 02/19/20 07:08 Resp 17 02/19/20 07:08 BP 118/71 02/19/20 07:08 Pulse Ox 98 02/19/20 07:08 - COMMENTS/OBSERVATIONS Free Text/Narrative:: The patient tolerated the procedure well. There were no apparent anesthetic complications at this time. Discharge home per primary service.
--- NOTE | 2020-02-19 12:17 | PCM.DCSUM1 ---
Discharge Summary - Hospital Course Free Text/Narrative:: Patient is a 49-year-old male who presented to the emergency room with acute right upper quadrant pain. Workup revealed acute cholecystitis. The patient was admitted to the floor for IV fluids IV antibiotics and bowel rest. Ultrasound confirmed acute cholecystitis secondary to cholelithiasis. He was taken the next day for a laparoscopic cholecystectomy. The patient was found to have a thickened and inflamed gallbladder with multiple gallstones within the g allbladder itself. Intraoperatively the patient had a drain placed and part of the back wall of the gallbladder was left in place. He tolerated the procedure well with no acute complications. He was admitted to the floor for close observation. His diet was advanced without difficulty. His vital signs stayed stable and his drain output was minimal. His drain was removed this morning. He was cleared for discharge. - Discharge Data Discharge Date: 02/19/20 Discharge Disposition: Home, Self-Care 01 Condition: Good - Referral to Home Health Primary Care Physician: Keith Martino MD - Discharge Diagnosis/Problem(s) (1) Cholecystitis SNOMED Code(s): 52404800 ICD Code: K81.9 - CHOLECYSTITIS, UNSPECIFIED Status: Acute - Patient Summary/Data Operative Procedure(s) Performed: Laparoscopic cholecytectomy - Patient Instructions Diet: Regular Diet as Tolerated Diet, Other: Avoid fatty food for one month Activity: No Lifting Over 20 Pounds, Rest and Relax Today Driving: Do Not Drive Showering/Bathing: No Showering, No Tub Bathing/Swimming Wound/Incision Care: Keep Operative Site/Wound Site Clean and Dry Notify Provider of: Fever, Increased Pain, Swelling and Redness, Drainage, Nausea and/or Vomiting Other/Special Instructions: No work for one week after surgery. Ok to return to work on February 28. - Discharge Plan *PRESCRIPTION DRUG MONITORING PROGRAM REVIEWED*: Yes *COPY OF PRESCRIPTION DRUG MONITORING REPORT IN PATIENT RAJIV: Yes Home Medications: Home Meds . [No Known Home Meds] 02/16/20 [History] Patient Handouts: Laparoscopic Cholecystectomy, Care After, Oxycodone tablets or capsules, Laparoscopic Cholecystectomy Referrals: Brunilda Santiago MD [Physician] - 03/02/20 8:30 am - Discharge Summary/Plan Comment DC Time >30 min.: No - General Info Functional Status: Reports: Pain Controlled, Tolerating Diet, Ambulating, Urinating. Denies: New Symptoms - Review of Systems General: Reports: No Symptoms HEENT: Reports: No Symptoms Pulmonary: Reports: No Symptoms Cardiovascular: Reports: No Symptoms Gastrointestinal: Reports: No Symptoms Genitourinary: Reports: No Symptoms - Patient Data Vitals - Most Recent: Last Vital Signs Temp 36.9 C 02/19/20 07:08 Pulse 78 02/19/20 07:08 Resp 17 02/19/20 07:08 BP 118/71 02/19/20 07:08 Pulse Ox 98 02/19/20 07:08 Weight - Most Recent: 119.522 kg I&O - Last 24 hours: Intake & Output 02/18/20 02/19/20 02/19/20 22:59 06:59 14:59 Intake Total 2250 1537 706 Output Total 180 2050 Balance 2070 -513 706 Med Orders - Current: Current Medications Discontinued Medications Bisacodyl (Dulcolax) 5 mg PO DAILY JANNIE Last Admin: 02/19/20 09:33 Dose: 5 mg Documented by: Bupivacaine HCl (Marcaine 0.5%) Confirm Administered Dose 30 ml .ROUTE .STK-MED ONE Stop: 02/18/20 13:06 Diphenhydramine HCl (Benadryl) 50 mg IVPUSH Q4H PRN PRN Reason: Itching Fentanyl (Fentanyl) 50 mcg IVPUSH ONETIME ONE Stop: 02/16/20 22:08 Last Admin: 02/16/20 22:56 Dose: Not Given Documented by: Fentanyl (Sublimaze) Confirm Administered Dose 250 mcg .ROUTE .STK-MED ONE Stop: 02/18/20 12:23 Glycopyrrolate (Robinul) Confirm Administered Dose 0.6 mg .ROUTE .STK-MED ONE Stop: 02/18/20 15:28 Hydromorphone HCl (Dilaudid) 0.5 mg IVPUSH Q1H PRN PRN Reason: Pain Hydromorphone HCl (Dilaudid) Confirm Administered Dose 2 mg .ROUTE .STK-MED ONE Stop: 02/18/20 12:23 Sodium Chloride (Normal Saline) 1,000 mls @ 999 mls/hr IV .Bolus ONE Stop: 02/16/20 23:07 Last Admin: 02/16/20 22:52 Dose: 999 mls/hr Documented by: Piperacillin Sod/Tazobactam (Sod 3.375 gm/ Sodium Chloride) 50 mls @ 100 mls/hr IV ONETIME ONE Stop: 02/17/20 01:00 Last Admin: 02/17/20 03:05 Dose: 100 mls/hr Documented by: Lactated Ringer's (Ringers, Lactated) 1,000 mls @ 150 mls/hr IV ASDIRECTED JANNIE Lactated Ringer's (Ringers, Lactated) 1,000 mls @ 125 mls/hr IV ASDIRECTED JANNIE Last Admin: 02/19/20 02:33 Dose: 125 mls/hr Documented by: Piperacillin Sod/Tazobactam (Sod 3.375 gm/ Sodium Chloride) 50 mls @ 100 mls/hr IV Q6H JANNIE Piperacillin Sod/Tazobactam (Sod 3.375 gm/ Sodium Chloride) 50 mls @ 100 mls/hr IV Q6H [facility] Last Admin: 02/17/20 03:35 Dose: Not Given Documented by: Piperacillin Sod/Tazobactam (Sod 3.375 gm/ Sodium Chloride) 50 mls @ 100 mls/hr IV Q6H [facility] Last Admin: 02/19/20 02:33 Dose: 100 mls/hr Documented by: Acetaminophen (Ofirmev) Confirm Administered Dose 100 mls @ as directed .ROUTE .STK-MED ONE Stop: 02/18/20 14:29 Iopamidol (Isovue-370 (76%)) 100 ml IVPUSH ONETIME ONE Stop: 02/16/20 23:36 Last Admin: 02/16/20 23:36 Dose: 100 ml Documented by: Ketorolac Tromethamine (Toradol) 15 mg IVPUSH ONETIME ONE Stop: 02/16/20 22:58 Last Admin: 02/16/20 23:02 Dose: 15 mg Documented by: Ketorolac Tromethamine (Toradol) Confirm Administered Dose 30 mg .ROUTE .STK-MED ONE Stop: 02/18/20 12:21 Ketorolac Tromethamine (Toradol) Confirm Administered Dose 30 mg .ROUTE .STK-MED ONE Stop: 02/18/20 12:27 Lidocaine (Xylocaine-Mpf 2%) Confirm Administered Dose 5 ml .ROUTE .STK-MED ONE Stop: 02/18/20 12:21 Midazolam HCl (Versed 1 Mg/Ml) Confirm Administered Dose 2 mg .ROUTE .STK-MED ONE Stop: 02/18/20 12:23 Miscellaneous Information (Remove Patch) 1 ea TRDERM DAILY@2100 JANN[facility] Last Admin: 02/18/20 21:01 Dose: 1 ea Documented by: Ondansetron HCl (Zofran) 4 mg IVPUSH ONETIME ONE Stop: 02/16/20 22:08 Last Admin: 02/16/20 22:53 Dose: 4 mg Documented by: Ondansetron HCl (Zofran) 4 mg IVPUSH Q6H PRN PRN Reason: Nausea/Vomiting Ondansetron HCl (Zofran) Confirm Administered Dose 4 mg .ROUTE .STK-MED ONE Stop: 02/18/20 12:21 Oxycodone/Acetaminophen (Percocet 325-5 Mg) 2 tab PO Q4H PRN PRN Reason: Pain (moderate 4-6) Promethazine HCl (Phenergan) 25 mg IM Q6H PRN PRN Reason: Nausea Propofol (Diprivan 20 Ml) Confirm Administered Dose 200 mg .ROUTE .STK-MED ONE Stop: 02/18/20 12:26 Rocuronium [place] (Rocuronium [place]) Confirm Administered Dose 50 mg .ROUTE .STK-MED ONE Stop: 02/18/20 12:21 Rocuronium [place] (Rocuronium [place]) Confirm Administered Dose 50 mg .ROUTE .STK-MED ONE Stop: 02/18/20 14:15 Scopolamine (Transderm-Scop) 1.5 mg TRDERM Q72H PRN PRN Reason: Nausea Scopolamine (Transderm-Scop) Confirm Administered Dose 1.5 mg .ROUTE .STK-MED ONE Stop: 02/18/20 14:07 Sugammadex Sodium ([place]) Confirm Administered Dose 200 mg .ROUTE .STK-MED ONE Stop: 02/18/20 14:29 - Exam Quality Assessment: Reports: Supplemental Oxygen General: Reports: Alert, Oriented HEENT: Reports: Pupils Equal, Pupils Reactive Lungs: Reports: Normal Respiratory Effort Cardiovascular: Reports: Regular Rate GI/Abdominal Exam: Soft, Non-Tender, No Distention, No Mass Extremities: Normal Inspection Wound/Incisions: Reports: Healing Well, Drainage (scant serosanguinous)
== END 2020-02-19 10:24 | disposition home or self-care (01) ==
LOC: MW.ED 21:27 → MW.MS 02-17 00:43
PROVIDERS: ADMIT Surgery; ATTEND Surgery
DX: K80.12 Calculus of gallbladder with acute and chronic cholecystitis without obstruction (principal); E66.9 Obesity, unspecified; G47.30 Sleep apnea, unspecified; Z01.812 Encounter for preprocedural laboratory examination; Z20.828 Contact with and (suspected) exposure to other viral communicable diseases; Z68.35 Body mass index [BMI] 35.0-35.9, adult
CPT/HCPCS: 36415; 47562; 74177; 76705; 80053; 81003; 82150; 83036; 83690; 85025; 87635; 96361; 96365; 96375; 99285; A9270; J0131; J1170; J1885; J2001; J2250; J2405; J2543; J2704; J3010; J3490; J7030; J7050; J7120; Q9967; 00790; 88304; 96374; 99284; U0002

== ENCOUNTER 2022-11-17 16:19 | Emergency (ER) | payer OTHER ==
[2022-11-17 18:18] LABS: APPEARANCE,URINE CLEAR; BILIRUBIN,URINE NEGATIVE (NEGATIVE); COLOR,URINE YELLOW; GLUCOSE,URINE NEGATIVE (NEGATIVE); KETONES,URINE TRACE mg/dL (NEGATIVE); LEUKOCYTE ESTERASE,URINE NEGATIVE (NEGATIVE); NITRITE,URINE NEGATIVE (NEGATIVE); OCCULT BLOOD,URINE NEGATIVE (NEGATIVE); PROTEIN,URINE NEGATIVE (NEGATIVE)
== END 2022-11-17 20:49 | disposition home or self-care (01) ==
LOC: MW.ED 16:19
DX: K76.0 Fatty (change of) liver, not elsewhere classified (principal); Z90.49 Acquired absence of other specified parts of digestive tract
CPT/HCPCS: 76705; 76705-26; 81003; 99283; 99284

== ENCOUNTER 2023-01-10 09:31 | Day surgery (SDC) | payer OTHER ==
[~2023-01-10 09:31] MED LIST: Lactated Ringers 1,000 ML IV SCH; Propofol 200 MG/20 ML SDV ONE; Sodium Chloride 0.9% 10 ML Syringe FLUSH PRN; Sodium Chloride 0.9% 2.5 ML Syringe FLUSH PRN; Sodium Chloride 0.9% 20 ML SDV IV PRN
== END 2023-01-10 11:50 | disposition home or self-care (01) ==
LOC: MW.SDS 09:31
PROVIDERS: ATTEND Surgery
DX: Z12.11 Encounter for screening for malignant neoplasm of colon (principal); K76.0 Fatty (change of) liver, not elsewhere classified; G47.33 Obstructive sleep apnea (adult) (pediatric); Z79.2 Long term (current) use of antibiotics; Z98.890 Other specified postprocedural states; E66.9 Obesity, unspecified; Z68.38 Body mass index [BMI] 38.0-38.9, adult
CPT/HCPCS: 45378; J2704; J7120